=== PATIENT | female | born 2000 | race African-American/Black ===

== ENCOUNTER 2023-09-01 20:43 | Emergency (ER) | payer MEDICAID ==
[~2023-09-01] VITALS: Ht 170.2 cm; Wt 70.3 kg
[2023-09-01] MEDS ORDERED: CYCL5TAB PO (22:46)
[2023-09-01] MEDS ORDERED: IBUP-1955 PO (22:46)
[2023-09-01] MEDS ORDERED: ACET-2605 PO (22:46)
[2023-09-01 23:07] VITALS: BP 111/89; TEMP 98.1; O2SAT 98
== END 2023-09-01 23:22 | disposition home or self-care (01) ==
LOC: ER 20:47
DX: M54.59 Other low back pain (principal); V43.62XA Car passenger injured in collision with other type car in traffic accident, initial encounter; Y93.89 Activity, other specified; Y92.481 Parking lot as the place of occurrence of the external cause; Y99.8 Other external cause status